=== PATIENT | male | born 1995 | race African-American/Black ===

== ENCOUNTER → 2017-05-31 | Outpatient (CLI) | payer OTHER | LOC: M.RAD 11:52 | DX: M54.6 Pain in thoracic spine (principal) ==

== ENCOUNTER 2019-07-21 18:16 | Emergency (ER) | payer OTHER ==
[~2019-07-21] VITALS: Ht 182.9 cm; Wt 77.1 kg
[2019-07-21] MEDS ORDERED: LAMOTRIGINE250 MG PO (18:47)
[2019-07-21 19:15] VITALS: BP 116/60
== END 2019-07-21 19:16 | disposition home or self-care (01) ==
LOC: M.ERS 18:16
DX: R51 Headache (principal); G40.909 Epilepsy, unspecified, not intractable, without status epilepticus; F12.90 Cannabis use, unspecified, uncomplicated; V89.0XXA Person injured in unspecified motor-vehicle accident, nontraffic, initial encounter; Y93.89 Activity, other specified; Y92.89 Other specified places as the place of occurrence of the external cause; Y99.8 Other external cause status